=== PATIENT | female | born 1945 | race Caucasian/White ===

== ENCOUNTER 2017-04-12 15:21 | Emergency (ER) | payer OTHER ==
[~2017-04-12] VITALS: Ht 157.5 cm; Wt 59.0 kg
[2017-04-12 15:23] VITALS: BP 133/94; PULSE 90; RESP 16; TEMP 98.2; O2SAT 97
[2017-04-12] MEDS ORDERED: LOVA40TA PO (15:35)
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
== END 2017-04-12 16:05 | disposition home or self-care (01) ==
LOC: PHEFT 15:21
DX: S80.12XA Contusion of left lower leg, initial encounter (principal); V19.9XXA Pedal cyclist (driver) (passenger) injured in unspecified traffic accident, initial encounter
CPT/HCPCS: 99282